=== PATIENT | male | born 1965 | race Caucasian/White ===

== ENCOUNTER 2016-08-17 12:41 | Emergency (ER) | payer OTHER ==
[~2016-08-17] VITALS: Ht 172.7 cm; Wt 107.0 kg
[2016-08-17 13:02] VITALS: BP 145/96; PULSE 79; RESP 17; TEMP 98.6; O2SAT 98
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
[2016-08-17] MEDS ORDERED: CYCL1TAB29 PO (13:39)
[2016-08-17] MEDS ORDERED: IBUP800T23 PO (13:39)
[2016-08-17] MEDS ORDERED: IBUPROFEN 800 MG TAB PO ONE (13:45)
== END 2016-08-17 13:50 | disposition home or self-care (01) ==
LOC: PHEFT 12:41
DX: S39.012A Strain of muscle, fascia and tendon of lower back, initial encounter (principal); M25.561 Pain in right knee; M62.838 Other muscle spasm; V49.49XA Driver injured in collision with other motor vehicles in traffic accident, initial encounter
CPT/HCPCS: 73564; 99284

== ENCOUNTER 2016-08-19 09:19 | Emergency (ER) | payer OTHER ==
[~2016-08-19] VITALS: Ht 172.7 cm; Wt 106.0 kg
[~2016-08-19 09:19] MED LIST: CYCL1TAB29 PO; IBUP800T23 PO
[2016-08-19 09:30] VITALS: BP 151/90; PULSE 65; RESP 16; TEMP 98.1; O2SAT 97
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
== END 2016-08-19 10:10 | disposition home or self-care (01) ==
LOC: PHEFT 09:19
DX: M54.5 Low back pain (principal); V49.40XA Driver injured in collision with unspecified motor vehicles in traffic accident, initial encounter
CPT/HCPCS: 99283